=== PATIENT | female | born 1985 ===

== ENCOUNTER 2017-11-14 13:45 | Inpatient (IN) | payer OTHER ==
[~2017-11-14] VITALS: Ht 160 cm; Wt 3.2 kg
[2017-11-14] MEDS ORDERED: PRENATABS RX T1 EACH PO (15:11)
[2017-11-23] MEDS ORDERED: FERROUS SULFAT325 M1 PO (08:25)
[2017-11-23] MEDS ORDERED: PREPLUS CA-FE1 EACH PO (08:25)
[2017-11-23] MEDS ORDERED: NAPR500T14 PO (08:25)
== END 2017-11-23 13:35 | DRG 766 ==
LOC: OB/GYN 11-20 07:00 → O/R 11-20 08:54 → OB/GYN 11-20 08:54
PROVIDERS: Specialist
PROC: 0WJH0ZZ Inspection of Retroperitoneum, Open Approach (ICD-10-PCS; 2017-11-20)
PROC: 0UT70ZZ Resection of Bilateral Fallopian Tubes, Open Approach (ICD-10-PCS; 2017-11-20)
PROC: 4A1HXCZ Monitoring of Products of Conception, Cardiac Rate, External Approach (ICD-10-PCS; 2017-11-20)
PROC: 10D00Z1 Extraction of Products of Conception, Low, Open Approach (ICD-10-PCS; principal; 2017-11-20 07:00)
DX: O34.211 Maternal care for low transverse scar from previous cesarean delivery (principal); Z3A.39 39 weeks gestation of pregnancy; Z37.0 Single live birth; O99.89 Other specified diseases and conditions complicating pregnancy, childbirth and the puerperium; N73.6 Female pelvic peritoneal adhesions (postinfective); R31.0 Gross hematuria; N32.89 Other specified disorders of bladder; Z30.2 Encounter for sterilization; Z64.1 Problems related to multiparity